=== PATIENT | female | born 1970 | race Caucasian/White ===

== ENCOUNTER 2025-07-04 13:43 | Emergency (ER) | payer BC, SELFPAY ==
[2025-07-04 13:45] VITALS: BP 148/74
[2025-07-04 14:24] LABS: Hematocrit 37.2 % (37.0-47.0); Hemoglobin 12.2 g/dL (12.0-16.0); Mean Corp Hgb Conc. 32.8 g/dL (33.0-37.0); Mean Corpuscular Volume 81.2 fL (81.0-99.0); Nucleated Red Blood Cells % 0 %; Platelet Count 371 10^3/uL (130-400); Red Cell Dist. Width 13.9 % (11.5-14.5)
[2025-07-04 14:25] VITALS: BP 126/69
--- NOTE | 2025-07-04 14:32 | ED.GENMED ---
History of Present Illness
General
Chief Complaint: Chest Pain
Source: patient and spouse
Exam Limitations: none
Time Seen by Provider: 07/04/25 14:34
Nursing documentation reviewed up to this point in time: agreed with
History of Present Illness
History of Present Illness:
Pt is a pleasant 54 yr old female with elevated cholesterol who complains of sternal chest tightness while sitting an doing a puzzle around 1:15 PM today. pain radiated up both sides of her neck and she felt SOB. Her gave her 3 baby aspirin.
She now feels better and pain is dull and mild. she denies a history of PE and DVT. she denies cough and fever.
Past History
Past History
ED Past Medical History: Hypercholesterolemia
ED Past Surgical History: Gynecological and Tonsilectomy
Social History
Tobacco: Non-smoker
Alcohol: Other
Drug: None
Personal:
Living: with family
Employment: Other
Family History
Family History: Early CAD
Review of Systems
Review of Systems
Allergies reviewed?: Yes
All Other Systems: ROS reviewed and negative except as documented in HPI and ROS
Constitutional: Reports no symptoms
EENT: Reports no symptoms
Respiratory: Reports trouble breathing
Cardiac: Reports chest pain
ABD/GI: Reports no symptoms
: Reports no symptoms
Musculoskeletal: Reports no symptoms
Skin: Reports no symptoms
Neurological: Reports no symptoms
Endocrine: Reports no symptoms
Hematologic/Lymphatic: Reports no symptoms
Psychiatric: Reports no symptoms
Phy Exam
General Physical Exam
General Presentation: well appearing and no apparent distress
General age: appears stated age
General Habitus: normal
General Mental: alert
ENT Exam
ENT Exam: neck supple
Cardiovascular Exam
Cardiovascular Exam: regular rate/rhythm and no murmur
Pulmonary Exam
Pulmonary Exam: lungs clear and no respiratory distress
Gastrointestinal Exam
Gastrointestinal Exam: non tender, soft and other (no pulsatile mass)
Neurological Exam
Neurological Exam: alert, oriented x3 and no motor deficits
Scores
Heart Score for Chest Pain Patients
STEMI patient?: No
History: Slightly or Non-Suspicious
ECG: Normal
Age: >45 - <65 years
Risk Factors: 1 or 2 Risk Factors
Troponin: </= Normal Limit
Heart Score for Chest Pain Patients: 2
Heart Score Risk: 2.5% MACE over next 6 weeks
Course
Orders/Labs/Results
Orders:
Orders
07/04/25 13:46
Electrocardiogram (*1) Urgent
Reason for Study: Chest Pain
EKG- Treatment ONCE
07/04/25 14:01
Complete Blood Count/With Diff Urgent
Comprehensive Metabolic Panel Urgent
Prothrombin Time Urgent
Troponin I Urgent
07/04/25 15:26
D-Dimer Urgent
07/04/25 16:10
CR Chest - 2 Views Urgent
Comment:
Reason For Exam: CP
07/04/25 16:34
Troponin I Urgent
Abnormal Lab Results
07/04/25
14:01
MCH 26.6 L pg
(27.0-31.0)
MCHC 32.8 L g/dL
(33.0-37.0)
BUN 20 H mg/dl
(7-17)
07/04/25 14:01
07/04/25 14:01
Vital Signs
Initial and Last Documented VS:
Initial Vital Signs
Temp Pulse Resp BP Pulse Ox
97.8 F 56 18 148/74 100
07/04/25 13:45 07/04/25 13:45 07/04/25 13:45 07/04/25 13:45 07/04/25 13:45
Last Documented Vital Signs
Temp Pulse Resp BP Pulse Ox
97.8 F 59 17 127/84 98
07/04/25 13:45 07/04/25 16:45 07/04/25 16:45 07/04/25 16:00 07/04/25 16:45
MDM/Problems Addressed
Differential Diagnosis Includes:
ACS, GERD, PE
MDM/Problems Addressed:
acute chest pain
Chronic conditions affecting care:
elevated cholesterol
Acute Exacerbation and/or Progression of Chronic Illness:
Pt is at increased risk of CAD with hx of hyperlipidemia
*Radiology
Radiology exam reviewed: preliminary read by ED provider (No acute disease. Chest x-ray reviewed by me) and radiology read reviewed
*Pulse Oximetry
SaO2: 100
Oxygen Mode of Delivery: Room air
Patient hypoxic: no
*EKG
Interpreted by ED Provider?: Yes
Interpretation: abnormal
Comparison EKG: no changes
Rate: bradycardiac
Rhythm: sinus
[place]: normal axis
Interval: normal interval
QRS Pattern: normal QRS
Ischemia: no ischemia
*Screen Printing Machine Loader Unloader Interpretation
Rate: bradycardiac
Interpretation: normal
Rhythm: sinus
*Critical Care Note
Total Time (30-74mins, 75-104mins- exclusive of procedures): Not Applicable
Data Reviewed
Source: patient and spouse
Patient Management
Social determinants of health affecting care: Living situation and Strong social support
Escalation/DeEscalation of care consider admission/obs:
5:30 PM patient continues to look extremely well and comfortable. Patient tells me she is completely chest pain-free and feels well.
ED Attending Note
-
Portions of this chart may have been created with voice recognition software.� Occasional wrong word or��sound alike� substitutions may have occurred due to the inherent limitations of voice recognition software.
Discharge Plan
Departure
Patient Disposition: Home (Routine Discharge)
Date of Disposition: 07/04/25
Time of Disposition: 17:42
Patient with high blood pressure during this ER visit?: Yes
Condition: Good
Covid-19: Not Applicable
Discharge Problem:
Chest pain
Instructions: Acid Reflux and GERD in Adults (DC), Chest Pain PCP Follow Up, BLOOD PRESSURE
Referrals:
NONE,* [Family Provider, Internal Medicine]
Activity Restrictions/Additional Instructions:
Please follow-up with your primary care doctor within 1 week.
Interventions
Interventions:
*Risk Screen - Suicide Last Done: 07/04/25 13:45
*General Assessment Last Done: 07/04/25 13:45
*Neglect/Abuse Screening Last Done: 07/04/25 13:45
*ED- Fall Risk Assessment Last Done: 07/04/25 15:30
*ED COVID-19 Vaccine History Last Done: 07/04/25 15:30
ED- Cardiac Assessment Last Done: 07/04/25 15:27
Discharge Date and Time
Print Language: IRISH
[2025-07-04 14:37] LABS: ALT (SGPT) 19 U/L (0-35); AST (SGOT) 22 U/L (14-36); Albumin 4.5 g/dl (3.5-5.0); Alkaline Phosphatase 46 U/L (38-126); Blood Urea Nitrogen 20 mg/dl (7-17); Calcium 9.9 mg/dl (8.4-10.2); Carbon Dioxide 28 mmol/L (22-30); Chloride 106 mmol/L (98-107); Glucose 85 mg/dl (70-99); INR 0.91; PT 12.6 Sec (11.4-14.6); Potassium 4.3 mmol/L (3.5-5.1); Sodium 139 mmol/L (135-145); Total Protein 6.9 g/dl (6.3-8.2); eGFR > 60.00
[2025-07-04 14:50] LABS: Troponin I < 0.012 ng/ml
[2025-07-04 15:00] VITALS: BP 129/72
[2025-07-04 15:26] VITALS: BMI 29.1
[2025-07-04 15:56] LABS: D-Dimer < 0.27 ug/mlFEU (0.00-0.50)
[2025-07-04 16:00] VITALS: BP 127/84
[2025-07-04 17:05] LABS: Troponin I < 0.012 ng/ml
== END 2025-07-04 18:09 | disposition home or self-care (01) ==
LOC: EMR 13:43
PROVIDERS: Emergency Medicine; EMERGENCY PHYSICIAN Emergency Medicine
DX: R07.9 Chest pain, unspecified (principal); E78.00 Pure hypercholesterolemia, unspecified; Z82.49 Family history of ischemic heart disease and other diseases of the circulatory system
CPT/HCPCS: 99284; 71046; 80053; 84484; 85025; 85379; 85610; 93005